=== PATIENT | male | born 1995 | race Asian ===

== ENCOUNTER 2016-10-14 23:27 | Emergency (ER) | payer BC ==
[~2016-10-14] VITALS: Ht 170.2 cm; Wt 108.0 kg
[2016-10-14 23:36] VITALS: TEMP 37; Ht 170.2 cm; Wt 108.0 kg
[2016-10-15] MEDS ORDERED: AZITHROMYCIN 250 MG TAB PO STA (01:18)
[2016-10-15] MEDS ORDERED: IBUPROFEN 600 MG TAB PO STA (01:18)
[2016-10-15] MEDS ORDERED: AZIT250T PO (01:21)
[2016-10-15 01:26] VITALS: BP 131/80; PULSE 70; O2SAT 100
--- NOTE | 2016-10-15 08:04 | EMERGENCY ROOM VISIT NOTE ---
History Report prepared by Stormy: Derrick Lane Under the Supervision of: Dr. Louis Tiwari M.D. First contact with patient: 00:58 Chief Complaint: ILLNESS Stated Complaint: SORE THROAT, EAR PRESSURE/SLIGHT PAIN, NAUSEA, TEIXEIRA History of Present Illness The patient is a 21 year old male who presents to the Emergency Room with complaints of worsening cold-like symptoms for the past month. He complains of a sore throat, congestion, drainage, and cough. The patient notes that he presented to [facility] who recommended Ibuprofen which helps resolve his sore throat symptoms somewhat. He describes his sore throat as feeling like his throat is closing and it is worse in the morning. In the past 2 days, the patient notes that he has felt a pressure in his ears. Today, he took a nap and when he woke up he was nauseous and had a headache. He took Mucinex for his symptoms earlier tonight. He hasn't been on antibiotics for these symptoms. Pt denies LOC, fevers , chills, diaphoresis, visual changes, neck pain, chest pain, breathing difficulties, vomiting, abdominal pain, back pain, melena, hematochezia, urinary symptoms, numbness, weakness, lymphadenopathy, rash, or other complaints. Source of History: patient Onset: past month Position: other (global) Timing: worsening Associated Symptoms: + cough, + headache, + nausea, + sorethroat Note: Other associated symptoms: congestion and drainage Review of Systems See HPI for pertinent positives and negatives. A total of ten systems were reviewed and were otherwise negative. Past Medical & Surgical Medical Problems: (1) Otitis media Family History FH: diabetes mellitus Social History Smoking Status: Never Smoker Housing Status: lives with roommate Occupation Status: employed, [employer] student Current/Historical Medications Scheduled Azithromycin (Zithromax), 250 MG PO DAILY Allergies Coded Allergies: Latex1 -Allergic Contact Dermititis (Verified Allergy, Unknown, RASH, 05/31) Physical Exam Vital Signs Date Time Temp Pulse Resp B/P Pulse Ox O2 Delivery O2 Flow Rate FiO2 10/15/16 01:26 70 16 131/80 100 Room Air 10/14/16 23:36 37.0 78 18 138/84 100 Room Air Physical Exam GENERAL: Awake, alert, non-ill appearing, no distress HEAD: Normocephalic, atraumatic. No edema. EYES: Normal conjunctiva. Sclera non-icteric. EARS: Right TM normal. Left TM normal. NOSE: Mild nasal congestion. OROPHARYNX: Lips, tongue, and mucosa unremarkable. Mild throat erythema. Uvula was midline. No exudates. NECK: Supple. No nuchal rigidity. FROM. No adenopathy. Negative jolt accentuation test. RESPIRATORY: CTA bilaterally. No wheezes rales or rhonchi. CARDIAC: Borderline tachycardic rate, normal rhythm. ABDOMEN: Soft, non distended. No tenderness to palpation. NEURO: Normal sensorium. SKIN: No rash or jaundice noted Medical Decision & Procedures Medications Administered Medications (Trade) Dose Ordered Sig/Dell Route Start Time Stop Time Status Last Admin Dose Admin Ibuprofen (Motrin Tab) 600 mg NOW STAT PO 10/15/16 01:18 10/15/16 01:20 DC 10/15/16 01:25 600 MG Azithromycin (Zithromax Tab) 500 mg NOW STAT PO 10/15/16 01:18 10/15/16 01:20 DC 10/15/16 01:25 500 MG ED Course 0114: The patient was evaluated in room B3. A complete history and physical exam was performed. 0118: Ordered Azithromycin 500 mg PO, Ibuprofen 600 mg PO. 0201: I reevaluated the patient and he was feeling better. Discussed results and discharge instructions: He verbalized understanding and agreement. The patient is ready for discharge. Medical Decision Triage Nursing notes reviewed. The patient's presentation and history were concerning for URI symptoms. Etiologies such as viral syndrome, otitis, pharyngitis, pneumonia, sinusitis, as well as others were entertained. The patient was evaluated. Clinically he was doing well. He had no meningeal findings. He has had several weeks of nasal congestion, postnasal drip, intermittent sore throat, and ears symptoms. He has only a mild cough and a clear lung examination. I discussed conservative management with the patient. Given his duration of symptoms and lack of improvement with [id number] medication he was started on Zithromax. The patient was also given Motrin. Given the duration of sinus symptoms he may be developing a sinusitis. He also has the mild pharyngitis. There is no evidence of retropharyngeal abscess or peritonsillar abscess. No epiglottitis symptoms suggested. By the evaluation outlined above other emergent etiologies such as those listed in the differential, as well as others, were deemed relatively unlikely. The patient was informed about the findings as listed above. All questions were answered and he was pleased with the treatment. Return instructions were outlined and the patient was discharged in stable condition. The patient was referred to his PCP for follow-up for a recheck of the current condition. The chart was completed utilizing [employer] voice recognition software. Grammatical errors, random word insertions, pronoun errors, and incomplete sentences are an occasional consequence of this system due to software limitations, ambient noise, and hardware issues. Any formal questions or concerns about the content, text, or information contained within the body of this dictation should be directly addressed to the physician for clarification. Impression Primary Impression: Pharyngitis Additional Impressions: Sinusitis URI (upper respiratory infection) Scribe Attestation The scribe's documentation has been prepared under my direction and personally reviewed by me in its entirety. I confirm that the note above accurately reflects all work, treatment, procedures, and medical decision making performed by me. Departure Information Dispostion Home / Self-Care Prescriptions Azithromycin (Zithromax) 250 Mg Tab 250 MG PO DAILY, #4 TAB Prov: Louis Tiwari MD 10/15/16 Referrals No Doctor, Assigned (PCP) Forms HOME CARE DOCUMENTATION FORM, IMPORTANT VISIT INFORMATION, WORK / SCHOOL INSTRUCTIONS Patient Instructions My [facility] Additional Instructions Azithromycin(Zithromax): Take one a day for 4 additional days. All antibiotics can cause diarrhea. If this occurs and you feel worse or it does not resolve in 1-2 days follow up with your doctor or return to the Emergency Department as this could be signs of serious underlying problems. Any medication can cause an allergic reaction, stop the pills immediately and return to the ER for rash, hives, breathing difficulties, or swelling. Acetaminophen(Tylenol) may be used for fever or pain. Use 1000mg every six hours as needed. Avoid using more than 4000mg in a 24 hour period. (AND/OR) Ibuprofen(Motrin, Advil) may be used for fever or pain. Use 600mg every six hours as needed. Take with food. Avoid using more than 2400mg in a 24 hour period. Do not use 2400mg per day for more than three consecutive days without physician direction. Prolonged inappropriate use can lead to stomach upset or ulcers. Afrin nasal spray: 2-3 sprays to each nostril twice daily as needed for congestion. Do not use for more than 3-4 days because it can lead to worsening rebound congestion. Pseudoephedrine(Sudaphed): 30-60mg every 6 hours as needed for nasal congestion. Do not take this with other stimulant products or supplements. Rest and drink plenty of fluids. Controlling your fever with Tylenol and Ibuprofen as above will make you feel better. Wash your hands after nose blowing, sneezing, or coughing. Most germs are spread through contact, therefore improper hygiene may result in your close contacts and loved ones becoming ill just like you. Return to the ER for severe headache, neck stiffness, chest pain, difficulty breathing, fevers, vomiting, worsening of your condition, or as needed. Follow up with your primary physician this week for a recheck of your current condition. Problem Qualifiers
== END 2016-10-15 01:35 | disposition home or self-care (01) ==
LOC: C.EDB 23:28
DX: J02.9 Acute pharyngitis, unspecified (principal); J06.9 Acute upper respiratory infection, unspecified; J32.9 Chronic sinusitis, unspecified; Z91.040 Latex allergy status